=== PATIENT | female | born 1995 | race Caucasian/White ===

== ENCOUNTER 2021-10-29 16:15 | Emergency (ER) | payer SELFPAY ==
[~2021-10-29] VITALS: Ht 175.3 cm; Wt 75.0 kg
[2021-10-29 16:46] VITALS: TEMP 98.1
[2021-10-29] MEDS ORDERED: FLINTSTONES COM1 CT1 PO (16:49)
[2021-10-29 17:17] LABS: BASO % 0.4 % (0.0-2.0); EOS # 0.1 K/mm3 (0.0-0.7); EOS % 0.8 % (0.0-4.0); GRAN # 5.3 K/mm3 (1.4-6.5); GRAN % 68.7 % (42.2-75.2); HEMOGLOBIN 11.7 g/dl (12.5-16.0); LYMPH # 1.8 K/mm3 (1.2-3.4); LYMPH % 22.6 % (20.0-51.0); MEAN CELL VOLUME 77 fl (80.0-100.0); MEAN CORPUSCULAR HEMOGLOBIN 25 pg (27-31); MEAN CORPUSCULAR HGB CONC 32 g/dl (33.0-37.0); MEAN PLATELET VOLUME 9.3 fl (7.4-10.4); MONO # 0.6 K/mm3 (0.1-0.6); MONO % 7.2 % (1.7-9.3); PLATELET COUNT 287 K/mm3 (130-400)
[2021-10-29 17:17] LABS: COLLECTION METHOD CLEAN CATCH
[2021-10-29 17:26] LABS: HEMATOCRIT 36.4 % (37.0-47.0)
[2021-10-29 17:32] LABS: MUCOUS Present (NOT PRESENT); PH 6 (5-8); SQUAMOUS EPITHELIAL 0-2 /hpf (0-10); URINE APPEARANCE Clear (CLEAR/HAZY); URINE BACTERIA None Seen /hpf (NONE SEEN); URINE BILIRUBIN Negative (NEGATIVE); URINE BLOOD 2+ (NEGATIVE); URINE COLOR Yellow (YELLOW); URINE GLUCOSE Negative (NEGATIVE); URINE KETONE Negative (NEGATIVE); URINE LEUKOCYTE ESTERASE Negative (NEGATIVE); URINE NITRATE Negative (NEGATIVE); URINE PROTEIN(semi-quant) Negative (NEGATIVE); URINE RBC 0-2 /hpf (0-2); URINE UROBILINOGEN Negative (NEGATIVE)
[2021-10-29 20:00] VITALS: BP 103/79; PULSE 87
== END 2021-10-29 20:07 | disposition home or self-care (01) ==
LOC: COL.ER 16:15
PROVIDERS: Nurse Practitioner Family
DX: O20.0 Threatened abortion (principal); Z3A.01 Less than 8 weeks gestation of pregnancy

== ENCOUNTER 2022-01-10 21:53 | Emergency (ER) | payer OTHER ==
[~2022-01-10] VITALS: Ht 175.3 cm; Wt 75.5 kg
[~2022-01-10 21:53] MED LIST: FLINTSTONES COM1 CT1 PO
[2022-01-10 22:01] VITALS: TEMP 97.5
[2022-01-10 23:17] VITALS: BP 113/68; PULSE 89
== END 2022-01-10 23:20 | disposition home or self-care (01) ==
LOC: COL.ER 21:53
DX: O30.002 Twin pregnancy, unspecified number of placenta and unspecified number of amniotic sacs, second trimester (principal); Z3A.17 17 weeks gestation of pregnancy; Z28.310 Unvaccinated for COVID-19

== ENCOUNTER 2022-01-23 22:54 | Emergency (ER) | payer OTHER ==
[~2022-01-23] VITALS: Ht 175.3 cm; Wt 75.9 kg
[2022-01-24] LABS: BASO % 0.2 % (0.0-2.0); EOS % 0.4 % (0.0-4.0); GRAN # 5.7 K/mm3 (1.4-6.5); GRAN % 69.4 % (42.2-75.2); HEMATOCRIT 31.1 % (37.0-47.0); HEMOGLOBIN 9.9 g/dl (12.5-16.0); LYMPH # 1.9 K/mm3 (1.2-3.4); LYMPH % 22.9 % (20.0-51.0); MEAN CELL VOLUME 76 fl (80.0-100.0); MEAN CORPUSCULAR HEMOGLOBIN 24 pg (27-31); MEAN CORPUSCULAR HGB CONC 32 g/dl (33.0-37.0); MEAN PLATELET VOLUME 9.6 fl (7.4-10.4); MONO # 0.6 K/mm3 (0.1-0.6); MONO % 6.9 % (1.7-9.3); PLATELET COUNT 211 K/mm3 (130-400); RED BLOOD COUNT 4.07 M/mm3 (4.10-5.30)
[2022-01-24 00:06] LABS: COLLECTION METHOD CLEAN CATCH
[2022-01-24 00:13] LABS: AMORPHOUS CRYSTAL Present (NOT PRESENT); MUCOUS Present (NOT PRESENT); PH 6 (5-8); SQUAMOUS EPITHELIAL 0-2 /hpf (0-10); URINE APPEARANCE Hazy (CLEAR/HAZY); URINE BACTERIA None Seen /hpf (NONE SEEN); URINE BILIRUBIN Negative (NEGATIVE); URINE BLOOD 1+ (NEGATIVE); URINE COLOR Yellow (YELLOW); URINE GLUCOSE 1+ (NEGATIVE); URINE KETONE Negative (NEGATIVE); URINE LEUKOCYTE ESTERASE Negative (NEGATIVE); URINE NITRATE Negative (NEGATIVE); URINE PROTEIN(semi-quant) 1+ (NEGATIVE); URINE RBC 20-50 /hpf (0-2)
[2022-01-24 00:19] LABS: ALBUMIN 2.7 gm/dL (3.5-5.0); ALKALINE PHOSPHATASE 89 U/L (40-150); ANION GAP 10 mmol/L (7-16); AST,SGOT 11 U/L (5-34); BILIRUBIN,TOTAL 0.2 mg/dL (0.2-1.2); BLOOD UREA NITROGEN 5 mg/dL (7-19); CALCIUM 8.4 mg/dL (8.4-10.2); CARBON DIOXIDE 20 mmol/L (22-29); CHLORIDE 107 mmol/L (98-107); CREATININE, serum 0.52 mg/dL (0.57-1.11); GLUCOSE 87 mg/dL (70-99); POTASSIUM 3.8 mmol/L (3.5-4.5); SODIUM 137 mmol/L (136-145); TOTAL PROTEIN 5.8 gm/dL (6.2-8.1)
[2022-01-24 00:28] LABS: ALANINE AMINOTRANSFERASE < 6 U/L (0-55)
[2022-01-24 00:52] VITALS: BP 106/71; PULSE 66; TEMP 98.4
== END 2022-01-24 00:52 | disposition home or self-care (01) ==
LOC: COL.ER 22:54
PROVIDERS: Nurse Practitioner
DX: O26.892 Other specified pregnancy related conditions, second trimester (principal); R10.32 Left lower quadrant pain; O99.891 Other specified diseases and conditions complicating pregnancy; M54.50 Low back pain, unspecified; Z3A.19 19 weeks gestation of pregnancy; Z86.718 Personal history of other venous thrombosis and embolism; Z79.01 Long term (current) use of anticoagulants; Z28.310 Unvaccinated for COVID-19

== ENCOUNTER 2022-02-14 19:25 | Outpatient (CLI) | payer OTHER ==
[~2022-02-14] VITALS: Ht 175.3 cm; Wt 79.5 kg
[2022-02-14 20:00] VITALS: BP 109/57; PULSE 76; TEMP 98.6
== END 2022-02-14 20:20 | disposition home or self-care (01) ==
LOC: LDRO 19:25
DX: O62.9 Abnormality of forces of labor, unspecified (principal); Z3A.00 Weeks of gestation of pregnancy not specified

== ENCOUNTER → 2022-02-16 | Outpatient (CLI) | payer OTHER ==
[~2022-02-16] VITALS: Ht 175.3 cm; Wt 80.9 kg
[2022-02-16 23:15] VITALS: TEMP 98.6
--- NOTE | 2022-02-16 23:25 | NUR ---
DR VAIL NOTIFIED AND GIVEN UPDATE PT CONTINUES TO HAVE UC'S. ORDERS NOTED TO GIVE 1 LITER LR IV BOLUS. TERBUTALINE 0.25 MG SQ. BENEDRYL 50 MG IVP. BETAMETHASONE 12 MG IM AND PT TO GET THE 2ND BETAMETHASONE TOMORROW IN 24 HRS. PROCARDIA 30 MG XL PO.
--- NOTE | 2022-02-16 23:28 | NUR ---
EXTERNAL FHR MONITORS OFF PER DR NO.
--- NOTE | 2022-02-16 23:38 | NUR ---
TERBUTALINE 0.25 MG SQ
[2022-02-17 00:15] VITALS: BP 119/58; PULSE 77
--- NOTE | 2022-02-17 04:15 | NUR ---
0415- THIS NURSE TO BEDSIDE, PT UPDATED ON PLAN OF CARE FOR DISMISSAL. QUESTIONS ANSWERED. BABY A DOPPLERED AT 135. BABY B DOPPLERED 140. MONITORS REMOVED FOR DISMISSAL. 0420- IV SITE DC'D WITH CANULA INTACT. 0425- DISMISSAL INSTRUCTIONS GIVEN AND PT VERBALIZES UNDERSTANDING. PT INSTRUCTED ON RETURNING IN 24 HOURS FOR SECOND SHOT OF BETAMETHASONE. PT DISMISSED TO HOME ACCOMPANIED BY SPOUSE.
== END ==
LOC: LDRO 23:00 → LDR 23:27 → LDRO 02-18 23:27
DX: O62.9 Abnormality of forces of labor, unspecified (principal); Z3A.22 22 weeks gestation of pregnancy
CPT/HCPCS: OP; J0702; J1200; J3105; J7120

== ENCOUNTER 2022-02-17 23:50 | Outpatient (CLI) | payer OTHER ==
[2022-02-18 00:20] VITALS: BP 111/57; PULSE 71; TEMP 97.9
--- NOTE | 2022-02-18 00:55 | NUR ---
@0018 RN NOTIFIED THAT WAS HERE WITH A COMPLAINT OF CONTACTIONS. ORDERED 30MG PROCARDIA XL.
--- NOTE | 2022-02-18 01:57 | NUR ---
PATIENT GIVEN DISCHARGE INFO AND STATES AN UNDERSTANDING. PATIENT WAS MADE AWARE TO KEEP ALL APPOINTMENTS INCLUDING THE SCHEDULED [facility]FM APPOINTMENT TOMORROW.
[2022-02-18 01:59] VITALS: BP 104/54; PULSE 67; TEMP 98
--- NOTE | 2022-02-18 02:17 | NUR ---
Patient observed ambulating off the unit with a steady gate.
== END 2022-02-18 02:13 | disposition home or self-care (01) ==
LOC: LDRO 23:50
DX: Z34.90 Encounter for supervision of normal pregnancy, unspecified, unspecified trimester (principal); Z3A.00 Weeks of gestation of pregnancy not specified
CPT/HCPCS: J0702

== ENCOUNTER 2022-03-17 21:51 | Outpatient (CLI) | payer OTHER ==
[~2022-03-17] VITALS: Ht 175.3 cm; Wt 80.5 kg
--- NOTE | 2022-03-17 22:00 | NUR ---
2199 G3L2 26.2 WEEK GEST WITH TWINS. PLANNING ON DELIVERING IN AT 34 WEEKS DUE TO TWIN B NOT GROWING WELL OR SHARING THE PLACENTA WELL. HERE C/O OF CONTRACTIONS SINCE 2099 AND BACKACHE AND FREQUENT URINATION. CCUA OBTAINED ON ADMISSION. EFM ON. SVE DONE. CERVIX VERY POSTERIOR, PRESENTING PART BALATABLE. FT/60/HIGH. BOW INTACT. 2229 DR SOARES NOTIFIED AND ORDERS RECIEVED.
[2022-03-17 22:20] VITALS: BP 114/68; PULSE 75; TEMP 97.7
[2022-03-17 22:38] LABS: COLLECTION METHOD CLEAN CATCH
[2022-03-17 22:49] LABS: MUCOUS Present (NOT PRESENT); PH 5 (5-8); URINE APPEARANCE Hazy (CLEAR/HAZY); URINE BACTERIA None Seen /hpf (NONE SEEN); URINE BLOOD Negative (NEGATIVE); URINE CALCIUM OXALATE CRYSTAL Present (NOT PRESENT); URINE COLOR Yellow (YELLOW); URINE GLUCOSE Negative (NEGATIVE); URINE KETONE Trace (NEGATIVE); URINE NITRATE Negative (NEGATIVE); URINE PROTEIN(semi-quant) Negative (NEGATIVE); URINE RBC 0-2 /hpf (0-2); URINE UROBILINOGEN >=4.0 (NEGATIVE)
[2022-03-17] MEDS ORDERED: PEPCID 20MG TAB20 MG PO (23:14)
[2022-03-17] MEDS ORDERED: TYLENOL 325MG325 MG PO (23:14)
[2022-03-17 23:15] VITALS: BP 108/59; PULSE 70
[2022-03-17] MEDS ORDERED: ASPIRIN 81M81 MG/TA2 PO (23:15)
--- NOTE | 2022-03-17 23:15 | NUR ---
2315 BABYS VERY ACTIVE AND MOVING A LOT. UNABLE TO TERRAZZO LAYER HELPER CONTINUOUS HEART TRACING DUE TO MOVEMENT. IV INFUSING. FEELING MUCH BETTER. NO C/O CONTRACTIONS AT THIS TIME 2320 DR SOARES NOTIFIED OF UA RESULTS AND PT FEELING BETTER. MAY GO HOME AFTER IV FLUIDS INFUSED.
--- NOTE | 2022-03-17 23:40 | NUR ---
2340 IV DCD. DISMISS HOME INSTRUCTIONS GIVEN. HOME WITH INSTRUCTIONS.
== END 2022-03-17 23:40 | disposition home or self-care (01) ==
LOC: LDRO 21:51
PROVIDERS: Obstetrics & Gynecology
DX: O47.02 False labor before 37 completed weeks of gestation, second trimester (principal); Z3A.26 26 weeks gestation of pregnancy
CPT/HCPCS: J7120

== ENCOUNTER 2022-03-29 12:01 | Outpatient (CLI) | payer OTHER ==
[~2022-03-29] VITALS: Ht 175.3 cm; Wt 80.9 kg
[~2022-03-29 12:01] MED LIST changes: +ASPIRIN 81M81 MG/TA2 PO; +PEPCID 20MG TAB20 MG PO; +TYLENOL 325MG325 MG PO
--- NOTE | 2022-03-29 12:10 | NUR ---
Presents to labor and delivery. States feels light headed. Assessment done, questions offered and answered.
[2022-03-29 12:30] VITALS: BP 116/68; PULSE 83; TEMP 98.9
[2022-03-29 12:45] VITALS: BP 112/66; PULSE 86
[2022-03-29 13:00] VITALS: BP 111/61; PULSE 82
[2022-03-29 13:09] LABS: BASO % 0.2 % (0.0-2.0); EOS % 0.4 % (0.0-4.0); GRAN # 8.3 K/mm3 (1.4-6.5); GRAN % 76.4 % (42.2-75.2); LYMPH # 1.6 K/mm3 (1.2-3.4); MEAN CELL VOLUME 73 fl (80.0-100.0); MEAN CORPUSCULAR HGB CONC 31 g/dl (33.0-37.0); MEAN PLATELET VOLUME 9.4 fl (7.4-10.4); MONO # 0.7 K/mm3 (0.1-0.6); MONO % 6.6 % (1.7-9.3); PLATELET COUNT 212 K/mm3 (130-400); RED BLOOD COUNT 4.24 M/mm3 (4.10-5.30); REDCELL DISTRIBUTION WIDTH-CV 14.4 % (11.5-14.5)
[2022-03-29 13:10] LABS: HEMATOCRIT 30.8 % (37.0-47.0); HEMOGLOBIN 9.5 g/dl (12.5-16.0); MEAN CORPUSCULAR HEMOGLOBIN 22 pg (27-31)
[2022-03-29 13:22] LABS: ALBUMIN 2.7 gm/dL (3.5-5.0); BILIRUBIN,TOTAL 0.3 mg/dL (0.2-1.2); CALCIUM 8.5 mg/dL (8.4-10.2); CREATININE, serum 0.52 mg/dL (0.57-1.11); POTASSIUM 3.7 mmol/L (3.5-4.5); TOTAL PROTEIN 6.3 gm/dL (6.2-8.1)
== END 2022-03-29 13:50 | disposition home or self-care (01) ==
LOC: LDRO 12:01 → LDR 12:11 → LDRO 13:50
PROVIDERS: Obstetrics & Gynecology
DX: O26.892 Other specified pregnancy related conditions, second trimester (principal); Z3A.24 24 weeks gestation of pregnancy
CPT/HCPCS: OP

== ENCOUNTER 2022-04-06 18:58 | Outpatient (CLI) | payer OTHER ==
[~2022-04-06] VITALS: Ht 175.3 cm; Wt 81.8 kg
--- NOTE | 2022-04-06 19:00 | NUR ---
1899 - PATIENT AMBULATORY TO [facility]. PATIENT REPORTS FEELING CONTRACTIONS. PATIENT DENIES LEAKING OF FLUID AND BLOODY SHOW. PATIENT REPORTS NORMAL MOVEMENT. PLAN OF CARE DISCUSSED. 1914 - PATIENT ON MONITOR. 1929 - SVE PERFORMED. CERVIX POSTERIOR. /HIGH. CARE ONGOING.
[2022-04-06 19:30] VITALS: BP 109/61; PULSE 81; TEMP 98.5
[2022-04-06 20:00] VITALS: PULSE 80
[2022-04-06 20:12] VITALS: PULSE 86
--- NOTE | 2022-04-06 20:20 | NUR ---
2020 - PATIENT INSTRUCTED ON EARLY LABOR AND NORMAL DISCOMFORTS OF . PATIENT INSTRUCTED TO KEEP APPOINTMENT WITH TEAM IN [place] SCHEDULED. PATIENT ALSO EDUCATED ON RESTING NEEDED AND STAYING HYDRATED. QUESTIONS ANSWERED. 2030 - PATIENT AMBULATORY OFF UNIT ACCOMPANIED BY THIS RN.
== END 2022-04-06 20:30 | disposition home or self-care (01) ==
LOC: LDRO 18:58
DX: Z34.93 Encounter for supervision of normal pregnancy, unspecified, third trimester (principal); Z3A.29 29 weeks gestation of pregnancy

== ENCOUNTER 2022-04-15 20:34 | Outpatient (CLI) | payer OTHER ==
[~2022-04-15] VITALS: Ht 175.3 cm; Wt 81.8 kg
--- NOTE | 2022-04-15 20:45 | NUR ---
PT TO UNIT AMBULATORY WITH COMPLAINTS OF CTX OVER THE LAST HOUR, PELVIC PRESSURE FOR THE LAST 3-4 DAYS, NAUSEA, MILD CHEW. ORIENTED TO ROOM, CHANGED INTO GOWN. TWIN , EFMX3 APPLIED, VS OBTAINED, SVE PERFORMED.
[2022-04-15 21:30] VITALS: BP 128/67; PULSE 72
[2022-04-15 21:57] LABS: COLLECTION METHOD CLEAN CATCH
[2022-04-15 21:59] LABS: BASO % 0.2 % (0.0-2.0); EOS # 0.1 K/mm3 (0.0-0.7); EOS % 0.5 % (0.0-4.0); GRAN # 7.7 K/mm3 (1.4-6.5); HEMATOCRIT 31.4 % (37.0-47.0); HEMOGLOBIN 9.7 g/dl (12.5-16.0); LYMPH # 1.9 K/mm3 (1.2-3.4); LYMPH % 17.7 % (20.0-51.0); MEAN CELL VOLUME 70 fl (80.0-100.0); MEAN CORPUSCULAR HEMOGLOBIN 22 pg (27-31); MEAN CORPUSCULAR HGB CONC 31 g/dl (33.0-37.0); MEAN PLATELET VOLUME 9.6 fl (7.4-10.4); MONO # 0.9 K/mm3 (0.1-0.6); MONO % 8.5 % (1.7-9.3); PLATELET COUNT 225 K/mm3 (130-400); RED BLOOD COUNT 4.48 M/mm3 (4.10-5.30)
[2022-04-15 22:05] LABS: MUCOUS Present (NOT PRESENT); SQUAMOUS EPITHELIAL 0-2 /hpf (0-10); URINE APPEARANCE Clear (CLEAR/HAZY); URINE BACTERIA Rare /hpf (NONE SEEN); URINE BLOOD Negative (NEGATIVE); URINE COLOR Yellow (YELLOW); URINE GLUCOSE Negative (NEGATIVE); URINE KETONE Negative (NEGATIVE); URINE NITRATE Negative (NEGATIVE); URINE PROTEIN(semi-quant) Negative (NEGATIVE); URINE RBC 0-2 /hpf (0-2); URINE WBC 0-2 /hpf (0-2)
[2022-04-15 22:18] LABS: ALBUMIN 2.8 gm/dL (3.5-5.0); BILIRUBIN,TOTAL 0.3 mg/dL (0.2-1.2); CALCIUM 8.7 mg/dL (8.4-10.2); CREATININE, serum 0.57 mg/dL (0.57-1.11); POTASSIUM 3.8 mmol/L (3.5-4.5); TOTAL PROTEIN 6.3 gm/dL (6.2-8.1)
--- NOTE | 2022-04-15 23:00 | NUR ---
IVF COMPLETED. DECEMBER DC HOME PER DR. MENJIVAR. [facility] DC'D. PT TO CHANGE INTO [facility]RE[facility] WHILE DISCHARGE PAPERWORK PREPARED.
--- NOTE | 2022-04-15 23:25 | NUR ---
DISCHARGE INSTRUCTIONS REVIEWED WITH PT. INSTRUCTED TO RETURN TO UNIT IF CONTRACTIONS BECOME MORE INTENSE OR CONSISTENT, IF HER WATER BREAKS, OR SHE HAS VAGINAL BLEEDING. ENCOURAGED PT TO PUSH FLUIDS. SCHEDULED TO HAVE VIDEO APPOINTMENT THIS THURSDAY WITH [facility] SHE INTENDS TO DELIVER VIA C/S THERE ON May. PT VERBALIZES UNDERSTANDING. OFF UNIT AMBULATORY FOR HOME.
== END 2022-04-15 23:25 | disposition home or self-care (01) ==
LOC: LDRO 20:34 → LDR 21:20 → LDRO 23:25
PROVIDERS: Obstetrics & Gynecology
DX: O26.893 Other specified pregnancy related conditions, third trimester (principal); E75.5 Other lipid storage disorders; Z3A.30 30 weeks gestation of pregnancy
CPT/HCPCS: OP; J2405; J7120

== ENCOUNTER 2022-04-16 15:31 | Outpatient (CLI) | payer OTHER ==
[~2022-04-16] VITALS: Ht 152.4 cm; Wt 80.9 kg
[2022-04-16 15:45] VITALS: BP 115/61; PULSE 70; TEMP 98.2
[2022-04-16 16:45] VITALS: BP 109/57; PULSE 72
--- NOTE | 2022-04-16 16:57 | NUR ---
1545 PATIENT HERE FOR COMPLAINTS OF CONTRACTIONS STARTED BACK AT 1400. 30 WEEKS WITH TWINS. EFM ON FHT TWIN A LEFT LOWER ABD. 116 BABY VERY ACTIVE. TWIN B RIGHT UPPER QUAD 120 VERY ACTIVE. SVE / AMNIOTRACE NEGATIVE. DR PEACE CALLED AND UPDATED. ORDER TO PO HYDRATE. ASSESSMENT COMPLETED. PATIENT DRINKING WATER AT THIS TIME
[2022-04-16 17:10] VITALS: BP 102/56; PULSE 72
--- NOTE | 2022-04-16 17:22 | NUR ---
1710 NO CHANGES NOTED TO SVE. CONTRACTIONS HAVE SPACED OUT AND LESS STRONG. DR ROLES CALLED AND UPDATED ON ALL INFORMATION AND ORDERS TO DISMISS TO HOME AND TO FOLLOW UP IN DR OFFICE TOMORROW FOR REGULAR APPOINTMENT. VERBAL UNDERSTANDING NOTED. DENIES NEEDS AT THIS TIME.
== END 2022-04-16 17:10 | disposition home or self-care (01) ==
LOC: LDRO 15:31
DX: O47.00 False labor before 37 completed weeks of gestation, unspecified trimester (principal); Z3A.00 Weeks of gestation of pregnancy not specified

== ENCOUNTER 2022-04-22 16:10 | Outpatient (CLI) | payer OTHER ==
[~2022-04-22] VITALS: Ht 175.3 cm; Wt 82.3 kg
[2022-04-22 17:30] VITALS: BP 109/66; PULSE 74; TEMP 98.2
--- NOTE | 2022-04-22 17:46 | NUR ---
1645-PT RECIEVED IN L&D ROOM 3 C/O OF LOWER ABDOMINAL AND VAGINAL PRESSURE, BACK PAIN, AND SPOTTING FOR THE LAST WEEK. PT DENIES DECREASED MOVEMENT AND LEAKING OF FLUID. PT HAS NOT HAS SEXUAL INTERCOURSE IN OVER ONE MONTH AND STATES "I ONLY HAD TWO BOTTLES OF WATER TODAY." 1715-CATEGORY 1 STRIP AT THIS TIME FOR BABY A AND BABY B. PT HAVING CONTRACTIONS Q2MINS. PT RATES PAIN 8 OUT OF 10. ADBOMEN PALPATES SOFT INBETWEEN CONTRACTIONS. PROVIDER NOTIFIED. ORDERS RECEIVED FOR SVE, RECHECK IN ONE HOUR, AND PO HYDRATION. CARE PLAN UPDATED.
[2022-04-22 19:00] VITALS: BP 119/71; PULSE 70
--- NOTE | 2022-04-22 19:00 | NUR ---
Pt reports getting betamethasone a couple of weeks ago with plans to repeat again in about 1 month. 1910 - 20g IV started in right hand after 1 other attempt. Lactated Ringers bolus infusing to gravity.
--- NOTE | 2022-04-22 20:00 | NUR ---
1 Liter of LR infused. Pt reports no change in contraction or back pain. SVE 250/-3, vertex position, membranes intact. Dr. Coronado notified.
--- NOTE | 2022-04-22 20:20 | NUR ---
Dr. Coronado at bedside reviewing plan of care with patient. Plan to transfer to [facility]. Pt agreeable, all questions answered.
--- NOTE | 2022-04-22 20:55 | NUR ---
Dr. Coronado at bedside to obtain GBS. Betamethasone given IM in left thigh, pepcid and zofran given IV, see MAR.
[2022-04-22 21:00] VITALS: BP 127/58; PULSE 69
[2022-04-22 22:00] VITALS: BP 138/79; PULSE 115; TEMP 98.3
--- NOTE | 2022-04-22 22:05 | NUR ---
Pt up to bathroom to void. Pt appears to be more comfortable but states that pain has not improved since arriving to hospital. Updated on transport teams estimated arrival time.
--- NOTE | 2022-04-22 22:20 | NUR ---
Pt reports feeling dizzy and nauseous. States that it may be because she hasn't had anything to eat since around 1100. Vital signs obtained and WNL, will continue to monitor.
[2022-04-22 22:30] VITALS: BP 119/63; PULSE 63
--- NOTE | 2022-04-22 22:30 | NUR ---
[place] transport team on unit. Report given to DALLIN Garzon and DALLIN Pa. Paperwork provided. Pt being prepped for transport. 2240 - Our monitors removed, pt up to bathroom to void. 2255 - Off unit by stretcher with transport team with belongings in stable condition. Escorted off unit by security.
[2022-04-22 22:40] VITALS: PULSE 68
== END 2022-04-22 22:55 | disposition short-term general hospital (02) ==
LOC: LDRO 16:10
DX: Z34.93 Encounter for supervision of normal pregnancy, unspecified, third trimester (principal)
CPT/HCPCS: J0690; J0702; J2405; J7120

== ENCOUNTER 2022-08-18 10:57 | Emergency (ER) | payer OTHER ==
[~2022-08-18] VITALS: Ht 175.3 cm; Wt 79.1 kg
[~2022-08-18 10:57] MED LIST changes: +DOXYCYCLINE HY100 MG PO; +FLAGYL500 MG PO; +NAPROSYN500 MG PO; +NORCO 325 MG-51 TAB PO; +ZOFRAN ODT4 MG PO
[2022-08-18 11:12] VITALS: BP 116/77
[2022-08-18 14:01] VITALS: PULSE 89; TEMP 97.4
[2023-05-18] MEDS ORDERED: PERCOCET 325 MG1 TA2 PO (00:51)
== END 2022-08-18 14:03 | disposition home or self-care (01) ==
LOC: COL.ER 10:57
DX: R10.31 Right lower quadrant pain (principal); J06.9 Acute upper respiratory infection, unspecified; Z90.49 Acquired absence of other specified parts of digestive tract; Z28.310 Unvaccinated for COVID-19; Z20.822 Contact with and (suspected) exposure to COVID-19
CPT/HCPCS: J1885

== ENCOUNTER → 2022-08-19 | Outpatient (CLI) | payer OTHER ==
[~2022-08-19] MED LIST changes: +FLEXERIL 1010 MG/TAB PO; +LIDODERM 5% PATC1 EA TP; +NEURONTIN300 MG/CAP PO; +PERCOCET 325 MG1 TA2 PO
== END ==
LOC: COL.RAD 07:48
DX: R10.2 Pelvic and perineal pain (principal)

== ENCOUNTER 2022-10-08 18:37 | Emergency (ER) | payer OTHER ==
[~2022-10-08] VITALS: Ht 175.3 cm; Wt 77.3 kg
[~2022-10-08 18:37] MED LIST changes: -FLEXERIL 1010 MG/TAB PO; -LIDODERM 5% PATC1 EA TP; -NEURONTIN300 MG/CAP PO; -PERCOCET 325 MG1 TA2 PO
[2022-10-08 18:53] VITALS: TEMP 97.6
[2022-10-08 22:19] VITALS: BP 122/78; PULSE 78
== END 2022-10-08 22:19 | disposition home or self-care (01) ==
LOC: COL.ER 18:37
PROVIDERS: Emergency Medicine
DX: G43.909 Migraine, unspecified, not intractable, without status migrainosus (principal); Z28.310 Unvaccinated for COVID-19
CPT/HCPCS: J0780; J1200; J1885

== ENCOUNTER 2022-12-14 21:28 | Emergency (ER) | payer OTHER ==
[~2022-12-14] VITALS: Ht 175.3 cm; Wt 77.3 kg
[2022-12-14] MEDS ORDERED: LIDODERM 5% PATC1 EA TP (22:07)
[2022-12-14] MEDS ORDERED: NAPROSYN500 MG PO (22:07)
[2022-12-14] MEDS ORDERED: NEURONTIN300 MG/CAP PO (22:07)
[2022-12-14] MEDS ORDERED: FLEXERIL 1010 MG/TAB PO (22:07)
[2022-12-14 22:55] VITALS: BP 108/65; PULSE 69; TEMP 98.3
== END 2022-12-14 22:55 | disposition home or self-care (01) ==
LOC: COL.ER 21:28
DX: M54.16 Radiculopathy, lumbar region (principal); Z28.310 Unvaccinated for COVID-19; X50.1XXA Overexertion from prolonged static or awkward postures, initial encounter

== ENCOUNTER 2024-03-05 13:16 | Emergency (ER) | payer OTHER ==
[~2024-03-05] VITALS: Ht 175.3 cm; Wt 75.0 kg
[~2024-03-05 13:16] MED LIST changes: +FLEXERIL 1010 MG/TAB PO; +IBU600 MG PO; +LIDODERM 5% PATC1 EA TP; +LOVENOX 4040 MG/0.4 SQ; +MACROBID 1100 MG/CAP PO; +NEURONTIN300 MG/CAP PO; +PERCOCET 325 MG1 TA2 PO
[2024-03-05 13:22] VITALS: TEMP 97.7
[2024-03-05 13:40] LABS: COLLECTION METHOD CLEAN CATCH
[2024-03-05] MEDS ORDERED: NS 1,000 ML IV ONE (13:45)
[2024-03-05 13:46] LABS: PH 5.5 (5.0-8.5); URINE APPEARANCE CLOUDY (CLEAR/HAZY); URINE BLOOD 1+ (NEGATIVE); URINE COLOR YELLOW (YELLOW); URINE GLUCOSE NEGATIVE (NEGATIVE); URINE KETONE 1+ (NEGATIVE); URINE NITRATE NEGATIVE (NEGATIVE); URINE PROTEIN(semi-quant) TRACE (NEGATIVE)
[2024-03-05 13:54] LABS: BASO % 0.4 % (0.0-2.0); EOS % 0.7 % (0.0-4.0); GRAN # 3.6 K/mm3 (1.4-6.5); HEMATOCRIT 41.1 % (37.0-47.0); HEMOGLOBIN 12.7 g/dl (12.5-16.0); LYMPH # 1.5 K/mm3 (1.2-3.4); LYMPH % 27.1 % (20.0-51.0); MEAN CELL VOLUME 84 fl (80.0-100.0); MEAN CORPUSCULAR HEMOGLOBIN 26 pg (27-31); MEAN CORPUSCULAR HGB CONC 31 g/dl (33.0-37.0); MEAN PLATELET VOLUME 9.5 fl (7.4-10.4); MONO # 0.4 K/mm3 (0.1-0.6); MONO % 6.6 % (1.7-9.3); PLATELET COUNT 257 K/mm3 (130-400); RED BLOOD COUNT 4.89 M/mm3 (4.10-5.30); REDCELL DISTRIBUTION WIDTH-CV 12.9 % (11.5-14.5)
[2024-03-05 14:14] LABS: ALBUMIN 4.2 g/dL (3.5-5.0); BILIRUBIN,TOTAL 0.6 mg/dL (0.2-1.2); CREATININE, serum 0.74 mg/dL (0.57-1.11); POTASSIUM 3.7 mEq/L (3.5-4.5)
[2024-03-05] MEDS ORDERED: Ondansetron 4 MG/2 ML VIAL IV ONE (14:15)
[2024-03-05 14:35] VITALS: BP 110/64; PULSE 68
[2024-03-05] MEDS ORDERED: CEPHALEXIN500 M1 PO (16:54)
== END 2024-03-05 14:35 | disposition home or self-care (01) ==
LOC: COL.ER 13:16
PROVIDERS: Physician Assistant
DX: N94.6 Dysmenorrhea, unspecified (principal); N39.0 Urinary tract infection, site not specified
CPT/HCPCS: J2405; J7030

== ENCOUNTER 2024-03-27 16:22 | Emergency (ER) | payer OTHER ==
[~2024-03-27] VITALS: Ht 175.3 cm; Wt 75.0 kg
[~2024-03-27 16:22] MED LIST changes: +CEPHALEXIN500 M1 PO
[2024-03-27 16:28] VITALS: BP 115/78; TEMP 97.6
[2024-03-27] MEDS ORDERED: NS 1,000 ML IV ONE (17:15)
[2024-03-27 17:38] LABS: MONOSCREEN NEGATIVE
[2024-03-27 18:10] VITALS: PULSE 88
== END 2024-03-27 18:10 | disposition home or self-care (01) ==
LOC: COL.ER 16:22
PROVIDERS: Physician Assistant
DX: J02.9 Acute pharyngitis, unspecified (principal); R51.9 Headache, unspecified
CPT/HCPCS: J0780; J7030

== ENCOUNTER 2024-06-12 21:24 | Emergency (ER) | payer OTHER ==
[~2024-06-12] VITALS: Ht 175.3 cm; Wt 70.5 kg
[2024-06-12 21:28] VITALS: BP 123/59; TEMP 98.3
[2024-06-12] MEDS ORDERED: Ibuprofen 600 MG TAB PO ONE (21:45)
[2024-06-12 22:09] VITALS: PULSE 70
== END 2024-06-12 22:11 | disposition home or self-care (01) ==
LOC: COL.ER 21:24
DX: S80.02XA Contusion of left knee, initial encounter (principal); W18.30XA Fall on same level, unspecified, initial encounter